=== PATIENT | female | born 1985 | race American Indian/Alaskan Native ===

== ENCOUNTER 2021-06-18 07:32 | Emergency (ER) | payer MEDICAID ==
[2021-06-18 07:39] VITALS: BP 150/79
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
== END 2021-06-18 14:29 | disposition home or self-care (01) ==
LOC: ED 07:32
DX: F31.9 Bipolar disorder, unspecified (principal); Z59.00 Homelessness unspecified
CPT/HCPCS: 99283